=== PATIENT | female | born 1990 | race African-American/Black ===

== ENCOUNTER 2016-08-01 05:26 | Emergency (ER) | payer OTHER ==
[2016-08-01 05:31] VITALS: BP 122/69; BMI 26.4
--- NOTE | 2016-08-01 06:05 | DR.LACERAT ---
HPI - Time Seen Time seen: 05:35 - Primary Care Physician Primary Care Physician: MICHAELA - HPI Comment HPI Comment: PATIENT WAS HITTING A DOOR AND SUSTAIN A LACERATION TO THE RIGHT HAND. - Complaints Chief Complaint Doctors Comments: RIGHT HAND LACERATION AND ABRASIONS. Chief Complaint:: LACERATION TO RIGHT HAND - Reviewed Nurses Notes Reviewed: Yes - Source History Provided: Patient - Mode of Arrival Mode of Arrival: Ambulatory - Location Right Hand Wound's Depth, Shape: Flap Laceration Explored: Contaminated - Timing Onset of Chief Complaint: 08/01/16 - Context Tetanus Vaccination: Yes - Severity Pain Severity: Moderate Bleeding:: Uncontrolled - Associated Signs and Symptoms Associated Signs and Symptoms: None PMH - PMH Past Medical History: No Past Surgical History: No - Family History History of Family Medical Conditions: No - Social History Does patient currently use any type of tobacco product: No Have you used tobacco products in the last 12 months: No Type of Tobacco Use: None Does any household member use tobacco: No Alcohol Use: None Do you use any recreational Drugs:: No Lives Where: Home - infectious screening Have you traveled outside the country in the last 6 months?: No Isolation: Standard ROS - Review of Systems Constitutional: No Symptoms Reported Eyes: No Symptoms Reported ENTM: No Symptoms Reported Respiratoy: No Symptoms Reported Cardiovascular: No Symptoms Reported Gastrointestinal/Abdominal: No Symptoms Reported Genitourinary: No Symptoms Reported Neurological: No Symptoms Reported Musculoskeletal: Hand Integumentary: Other (3CU LAC LAT LEFT HAND AND MULTIPLE ABRASIONS RIGHT HAND.) Hematologic/Lymphatic: No Symptoms Reported Endocrine: No Symptoms Reported All Other Systems: Reviewed and Negative PE - Vital Signs Vitals: Temperature 98.3 F Pulse Rate 120 Respiratory Rate 18 Blood Pressure 122/69 O2 Sat by Pulse Oximetry 99 - General Limitations: No Limitations General Appearance: Alert - Head Head Exam: Normal Inspection - Eyes Eye exam: Normal Appearance - ENT ENT Exam: Normal External Ear Exam - Neck Neck Exam: Normal Inspection - Chest Chest Inspection: Symmetric Chest Wall Rise - Respiratory Respiratory Exam: Normal Lung Sounds Bilat Respiratory Exam: Bilateral Clear to Auscultation - Cardiovascular Cardiovascular Exam: Regular Rate, Normal Rhythm, Normal Heart Sounds - Abdominal Exam Abdominal Exam: Normal Inspection - Extremities Extremities Exam: Other (LACERATION AND ABRASIONS ROGHT HAND.) - Back Back Exam: Normal Inspection - Neurologic Neurological Exam: Alert, Oriented X3 - Psychiatric Psychiatric Exam: Anxious - Skin Type of Lesion: Laceration (3CM), Abrasion Distribution: RUE MDM - Additional Information Obtained Additional Information Obtained From: Family - Differential Diagnosis Differential Diagnosis: Laceration Course - Treatment Treatment: SEE ORDERS - Education/Counseling Education/Counseling: Patient, Family, Education Educated On: Diagnosis, Needs for Follow Up Procedures - Laceration/Wound Repair Right Hand Wound Length (cm): 4 Wound's Depth, Shape: Flap Wound Explored: contaminated Betadine Prep?: Yes Anesthesia: 1% Lidocaine Wound Debrided: moderate Wound Repaired With: sutures Suture Size/Type: 4:0, [place] Number of Sutures: 9 Layer Closure?: No Sterile Dressing Applied?: Yes Splint Applied?: No Sling Applied?: No - Diagnosis Discharge Problem: Laceration, Abrasions of multiple sites - Discharge Plan Condition: Stable Prescriptions: Cephalexin [Keflex Cap 500 mg] 500 mg PO TID #21 cap Ibuprofen [MOTRIN TAB 600 MG *] 600 mg PO TID PRN #20 tab PRN Reason: Pain/Inflammation - Follow ups/Referrals Follow ups/Referrals: NFD,None [Primary Care Provider] - 3 days - Instructions Instructions: Laceration Care, Adult Additional Instructions: RETURN TO ED IF WORSE. SUTURE OUT IN 10 DAYS
== END 2016-08-01 06:29 | disposition home or self-care (01) ==
LOC: ER 05:26
PROC: 0XQJ0ZZ Repair Right Hand, Open Approach (ICD-10-PCS; principal; 2016-08-01)
DX: S61.411A Laceration without foreign body of right hand, initial encounter (principal); T14.8 Other injury of unspecified body region; X58.XXXA Exposure to other specified factors, initial encounter; Y92.9 Unspecified place or not applicable
CPT/HCPCS: 12002; 99282